=== PATIENT | male | born 1960 | race Caucasian/White ===

== ENCOUNTER → 2021-03-20 12:11 | Outpatient (BNVA) | payer SELFPAY | DX: Z02.89 Encounter for other administrative examinations (principal) ==

== ENCOUNTER 2024-02-14 08:41 | Outpatient (REF) | payer MEDICARE, SELFPAY ==
[2024-02-25 18:34] LABS: Acetylcholine Receptor Binding <0.30 nmol/L
[2024-03-15 13:34] LABS: Acetylcholine Recep Modulating <1; Acetylcholine Recept. Blocking <15
== END 2024-02-14 08:42 | disposition home or self-care (01) ==
LOC: HO.LAB 08:41
PROVIDERS: PCP Family Medicine; Visit Provider Psychiatry & Neurology Neurology
DX: G70.00 Myasthenia gravis without (acute) exacerbation (principal)
CPT/HCPCS: 36415; 83520; 86041; 86042; 86043